=== PATIENT | female | born 1955 | race Caucasian/White ===

== ENCOUNTER 2017-04-19 20:43 | Inpatient (IN) | payer BC ==
[2017-04-19] MEDS ORDERED: Sodium Chloride 0.9% 1,000 ML IV ONE (21:11)
[2017-04-19] MEDS ORDERED: Ondansetron 4 MG/2 ML SDV IVPUSH ONE (21:11)
--- NOTE | 2017-04-19 21:21 | EDM.PDOC ---
<Isela Hutchins - Last Filed: 04/19/17 22:02> ED HPI GENERAL MEDICAL PROBLEM - General Chief Complaint: Abdominal Pain Stated Complaint: PT HAS STOMACH PAINS Time Seen by Provider: 04/19/17 21:05 Source of Information: Reports: Patient History Limitations: Reports: No Limitations - History of Present Illness INITIAL COMMENTS - FREE TEXT/NARRATIVE: HISTORY AND PHYSICAL: History of present illness: [Pt comes to the ER complaining of mid R abd pain. States that she developed a hernia to her R mid abdomen in December 2016 after several days of hard vomiting. She had a regular follow up with her PCP, Dr. Oliva, on Sunday when she first told him about this hernia. He did an abdominal exam that the patient describes as aggressive. Since then she has had increased tenderness to the area. The pain is gradually worsened over the past couple of days. Yesterday she said she noticed some redness developing to her right mid abdomen around the hernia and it worsened throughout today. Since she got home from work at 5:30 she has had several episodes of vomiting, fever, and diarrhea. She feels fatigued and sick. Did not check her temperature at home and has not had any medications for her symptoms. History of cholecystectomy approx 30 years ago. ] Review of systems: As per history of present illness and below otherwise all systems reviewed and negative. Past medical history: As per history of present illness and as reviewed below otherwise noncontributory. Surgical history: As per history of present illness and as reviewed below otherwise noncontributory. Social history: No reported history of drug or alcohol abuse. Family history: As per history of present illness and as reviewed below otherwise noncontributory. Physical exam: Gen.: Well-developed well-nourished female in no acute distress. She appears to not be feeling well but certainly does not appear toxic. Vital signs are reviewed by this provider. Temperature 101 orally. HEENT: Atraumatic, normocephalic. Oral mucous membranes are pink and moist. Lungs: Clear to auscultation, breath sounds equal bilaterally. Heart: S1S2, regular rate and rhythm. No clicks, rubs, or murmur. Abdomen: Bowel sounds are normoactive throughout. Area of erythema to right mid abdomen measures 7" x 3". Area of hardness within the tissues, exquisitely tender to touch. Abd is otherwise soft, nondistended, nontender. Negative for costovertebral tenderness. Genitourinary: Deferred. Rectal: Deferred. Extremities: Atraumatic, ambulatory without deficit. Neurovascular unremarkable. Neuro: Awake, alert, oriented. Motor and sensory unremarkable throughout. Exam nonfocal. Diagnostics: [CBC, CMP, lactic acid, blood cultures, UA, CT abd and pelvis w/ contrast] Therapeutics: [1 liter NS, Zofran 4mg IV, vancomycin 1 gram IV] Impression: [] Plan: [Plan to admit. ] Definitive disposition and diagnosis as appropriate pending reevaluation and review of above. abdomen Pain Score (Numeric/FACES): 8 - Related Data Allergies Allergy/AdvReac Type Severity Reaction Status Date / Time No Known Allergies Allergy Verified 04/19/17 21:01 Home Meds: Home Meds . 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 ED EXAM, GI/ABD - Physical Exam Exam: See Below Course - Vital Signs Last Recorded V/S: Last Vital Signs Temp 36.6 C 04/19/17 23:00 Pulse 78 04/19/17 23:00 Resp 16 04/19/17 23:00 BP 121/52 L 04/19/17 23:00 Pulse Ox 98 04/19/17 23:00 - Orders/Labs/Meds Orders: Active Orders 24 hr Category Date Time Status Abdomen Pelvis w Cont [CT] Stat Exams 04/19/17 21:21 Taken CULTURE BLOOD [BC] Stat Lab 04/19/17 21:11 Ordered CULTURE BLOOD [BC] Stat Lab 04/19/17 21:40 Received Blood Culture x2 Reflex Set [OM.PC] Stat Oth 04/19/17 21:11 Ordered Labs: Laboratory Tests 04/19/17 04/19/17 04/19/17 Range/Units 21:25 21:25 21:25 WBC 16.43 H (4.0-11.0) K/uL RBC 4.70 (4.30-5.90) M/uL Hgb 14.8 (12.0-16.0) g/dL Hct 42.4 (36.0-46.0) % MCV 90.2 (80.0-98.0) fL MCH 31.5 (27.0-32.0) pg MCHC 34.9 (31.0-37.0) g/dL RDW Std Deviation 41.0 (28.0-62.0) fl RDW Coeff of Miladis 13 (11.0-15.0) % Plt Count 352 (150-400) K/uL MPV 9.70 (7.40-12.00) fL Neut % (Auto) 87.5 H (48.0-80.0) % Lymph % (Auto) 6.1 L (16.0-40.0) % [place] % (Auto) 5.7 (0.0-15.0) % Eos % (Auto) 0.6 (0.0-7.0) % Baso % (Auto) 0.1 (0.0-1.5) % Neut # (Auto) 14.4 H (1.4-5.7) K/uL Lymph # (Auto) 1.0 (0.6-2.4) K/uL [place] # (Auto) 0.9 H (0.0-0.8) K/uL Eos # (Auto) 0.1 (0.0-0.7) K/uL Baso # (Auto) 0.0 (0.0-0.1) K/uL Nucleated RBC % 0.0 /100WBC Nucleated RBCs # 0 K/uL Lactate 0.9 (0.20-2.00) mmol/L Sodium 138 (136-146) mmol/L Potassium 3.5 (3.5-5.1) mmol/L Chloride 107 (98-110) mmol/L Carbon Dioxide 19 L (21-31) mmol/L BUN 10 (6.0-23.0) mg/dL Creatinine 0.8 (0.6-1.5) mg/dL Est Cr Clr Drug Dosing TNP Estimated GFR (MDRD) > 60.0 ml/min Glucose 131 H (60-110) mg/dL Calcium 9.6 (8.8-10.8) mg/dL Total Bilirubin 0.8 (0.1-1.5) mg/dL AST 50 H (5-40) IU/L ALT 67 H (8-54) IU/L Alkaline Phosphatase 94 (40-150) Total Protein 8.0 (6.0-8.0) g/dL Albumin 4.5 (3.4-4.8) g/dL Globulin 3.5 (2.0-3.5) g/dL Albumin/Globulin Ratio 1.3 (1.3-2.8) Urine Color Urine Appearance Urine pH (5.0-8.0) Ur Specific [place] (1.001-1.035) Urine Protein (NEGATIVE) mg/dL Urine Glucose (UA) (NEGATIVE) mg/dL Urine Ketones (NEGATIVE) mg/dL Urine Occult Blood (NEGATIVE) Urine Nitrite (NEGATIVE) Urine Bilirubin (NEGATIVE) Urine Urobilinogen (<2.0) EU/dL Ur Leukocyte Esterase (NEGATIVE) Urine RBC (0-2/HPF) Urine WBC (0-5/HPF) Ur Epithelial Cells (NONE-FEW) Urine Bacteria (NEGATIVE) 04/19/17 Range/Units 23:12 WBC (4.0-11.0) K/uL RBC (4.30-5.90) M/uL Hgb (12.0-16.0) g/dL Hct (36.0-46.0) % MCV (80.0-98.0) fL MCH (27.0-32.0) pg MCHC (31.0-37.0) g/dL RDW Std Deviation (28.0-62.0) fl RDW Coeff of Miladis (11.0-15.0) % Plt Count (150-400) K/uL MPV (7.40-12.00) fL Neut % (Auto) (48.0-80.0) % Lymph % (Auto) (16.0-40.0) % [place] % (Auto) (0.0-15.0) % Eos % (Auto) (0.0-7.0) % Baso % (Auto) (0.0-1.5) % Neut # (Auto) (1.4-5.7) K/uL Lymph # (Auto) (0.6-2.4) K/uL [place] # (Auto) (0.0-0.8) K/uL Eos # (Auto) (0.0-0.7) K/uL Baso # (Auto) (0.0-0.1) K/uL Nucleated RBC % /100WBC Nucleated RBCs # K/uL Lactate (0.20-2.00) mmol/L Sodium (136-146) mmol/L Potassium (3.5-5.1) mmol/L Chloride (98-110) mmol/L Carbon Dioxide (21-31) mmol/L BUN (6.0-23.0) mg/dL Creatinine (0.6-1.5) mg/dL Est Cr Clr Drug Dosing Estimated GFR (MDRD) ml/min Glucose (60-110) mg/dL Calcium (8.8-10.8) mg/dL Total Bilirubin (0.1-1.5) mg/dL AST (5-40) IU/L ALT (8-54) IU/L Alkaline Phosphatase (40-150) Total Protein (6.0-8.0) g/dL Albumin (3.4-4.8) g/dL Globulin (2.0-3.5) g/dL Albumin/Globulin Ratio (1.3-2.8) Urine Color YELLOW Urine Appearance CLEAR Urine pH 5.0 (5.0-8.0) Ur Specific [place] <= 1.005 (1.001-1.035) Urine Protein NEGATIVE (NEGATIVE) mg/dL Urine Glucose (UA) NEGATIVE (NEGATIVE) mg/dL Urine Ketones TRACE H (NEGATIVE) mg/dL Urine Occult Blood TRACE-INTACT (NEGATIVE) Urine Nitrite NEGATIVE (NEGATIVE) Urine Bilirubin NEGATIVE (NEGATIVE) Urine Urobilinogen 0.2 (<2.0) EU/dL Ur Leukocyte Esterase NEGATIVE (NEGATIVE) Urine RBC 0-1 (0-2/HPF) Urine WBC 0-2 (0-5/HPF) Ur Epithelial Cells FEW (NONE-FEW) Urine Bacteria FEW (NEGATIVE) Meds: Medications Discontinued Medications Generic Name Dose Route Start Last Admin Trade Name Freq PRN Reason Stop Dose Admin Sodium Chloride 1,000 mls @ 999 mls/hr 04/19/17 21:11 04/19/17 21:28 Normal Saline IV 04/19/17 22:11 999 mls/hr STAT ONE Administration Vancomycin HCl 1 gm/ Sodium 250 mls @ 250 mls/hr 04/19/17 21:37 04/19/17 21: 47 Chloride IV 04/19/17 22:36 250 mls/hr ONETIME ONE Administration Iopamidol 100 ml 04/19/17 22:43 04/19/17 22:44 Isovue Multipack-370 (76%) IVPUSH 04/19/17 22:44 100 ml ONETIME STA Administration Ondansetron HCl 4 mg 04/19/17 21:11 04/19/17 21:28 Zofran IVPUSH 04/19/17 21:12 4 mg ONETIME ONE Administration Departure - Departure Disposition: Refer to Observation Clinical Impression: Cellulitis, Subcutaneous abscess - Discharge Information Referrals: PCP,None [Primary Care Provider] - Forms: ED Department Discharge <Chester Tejada - Last Filed: 04/20/17 00:13> ED HPI GENERAL MEDICAL PROBLEM - History of Present Illness INITIAL COMMENTS - FREE TEXT/NARRATIVE: Patient CT demonstrates subcutaneous abdominal wall abscess , general surgery was consulted and is seen patient emergency department and will admit for definitive treatment. Impression is #1 abdominal wall abscess with cellulitis Departure - Departure Time of Disposition: 00:13 Condition: Good
[2017-04-19 21:59] LABS: CHLORIDE,CL 107 mmol/L (98-110); SODIUM,NA 138 mmol/L (136-146)
[2017-04-19] MEDS ORDERED: Iopamidol 755 MG/ML 500 ML Multipack Bottle IVPUSH STA (22:43)
[2017-04-20] MEDS ORDERED: HYDROmorphone 2 MG/ML Syringe IVPUSH PRN (00:31)
[2017-04-20] MEDS ORDERED: Acetaminophen/HYDROcodone 325-5 MG Tab PO PRN (00:31)
[2017-04-20] MEDS ORDERED: diphenhydrAMINE 50 MG/ML SDV IVPUSH PRN (00:31)
[2017-04-20] MEDS ORDERED: Sodium Chloride 0.9% 50 ML ONE (00:43)
--- NOTE | 2017-04-20 00:43 | PCM.HP ---
H&P History of Present Illness - General Date of Service: 04/20/17 Admit Problem/Dx: Patient is a 62 year old female who presents to the ED with c/o of a painful abdominal mass over a previous surgical incision. The incision is from an open cholecystectomy when she was back in college. She had a post-operative wound infection which was drained and allowed to heal by secondary intention. It has never bothered her until this last spring when she noticed a small bulge along the mid-portion of her scar. It did not go away and so she saw her PCP on Sunday for evaluation. He felt it was a hernia and tried to reduce it. It did not reduce and was painful afterwards. She was told to follow up with a surgeon. The mass grew more and more painful. It became red today and the patient was having chills, low grade fevers, as well as nausea and vomiting. She presented to the ED this evening. She was found to have a firm indurated area ~4cm in size along the midportion of her old incision. CBC showed a leukocytosis with left shift. CT of the abdomen without oral or IV contrast showed a 2.5 cm abscess with stranding along the area of interest. She also has enlarged central mesenteric lymph nodes, fatty liver, an absent appendix and gallbladder, and diverticulosis. Source of Information: Patient abdomen Pain Score (Numeric/FACES): 8 - Related Data Allergies/Adverse Reactions: Allergies Allergy/AdvReac Type Severity Reaction Status Date / Time No Known Allergies Allergy Verified 04/19/17 21:01 Home Medications: Home Meds . 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: Endocrine/Metabolic History: Reports: Other (See Below) (Thyroid disease) - Infectious Disease History Infectious Disease History: Reports: None - Past Surgical History GI Surgical History: Reports: Appendectomy, Cholecystectomy Female Surgical History: Reports: Tubal Ligation Endocrine Surgical History: Reports: Other (See Below) Other Endocrine Surgeries/Procedures: partial thyroid removal Social & Family History - Family History Family Medical History: Noncontributory - Tobacco Use Smoking Status *Q: Former Smoker - Recreational Drug Use Recreational Drug Use: No H&P Review of Systems - Review of Systems: Review Of Systems: See Below General: Reports: Fever, Chills, Malaise, Weakness, Decreased Appetite HEENT: Reports: No Symptoms Pulmonary: Reports: No Symptoms Cardiovascular: Reports: No Symptoms Gastrointestinal: Reports: Abdominal Pain, Flatus, Nausea, Vomiting. Denies: Hematochezia, Melena, Mucous in Stool, Stool Incontinence Musculoskeletal: Reports: No Symptoms Skin: Reports: Erythema, Lumps Psychiatric: Reports: No Symptoms Neurological: Reports: No Symptoms Hematologic/Lymphatic: Reports: No Symptoms. Denies: Swollen Glands Immunologic: Reports: No Symptoms Exam - Exam Exam: See Below - Vital Signs Vital Signs: Last Vital Signs Temp 36.6 C 04/19/17 23:00 Pulse 78 04/19/17 23:00 Resp 16 04/19/17 23:00 BP 121/52 L 04/19/17 23:00 Pulse Ox 98 04/19/17 23:00 Weight: 56.6 kg - Exam General: Alert, Oriented HEENT: Conjunctiva Clear, EACs Clear, Hearing Intact, Mucosa Moist & Forks, Posterior Pharynx Clear, Pupils Equal, Pupils Reactive Neck: Supple, Trachea Midline Lungs: Clear to Auscultation, Normal Respiratory Effort Cardiovascular: Regular Rate, Regular Rhythm GI/Abdominal Exam: Soft, No Distention, Tender, Other (4 cm area of induration along midportion of previous abdominal incision ) Extremities: Normal Inspection - Patient Data Result Diagrams: 04/19/17 21:25 04/19/17 21:25 *Q Meaningful Use (ADM) - VTE *Q VTE Criteria *Q: - Stroke *Q Stroke Criteria *Q: - AMI *Q AMI Criteria *Q: - Problem List (1) Cellulitis SNOMED Code(s): 294161235 ICD Code: L03.90 - CELLULITIS, UNSPECIFIED Status: Acute Current Visit: Yes (2) Subcutaneous abscess SNOMED Code(s): 45223553 ICD Code: L02.91 - CUTANEOUS ABSCESS, UNSPECIFIED Status: Acute Current Visit: Yes Problem List Initiated/Reviewed/Updated: Yes Assessment/Plan Comment:: Patient has an abscess of the abdominal wall along her previous incision. This abuts the abdominal wall fascia. It is too deep and painful to open up bedside. She should be taken to the OR for an incision and drainage in the morning after she has been resuscitated and been given broad spectrum antibiotics. -IV pain meds -NPO except ice chips and meds -IV zosyn and vanc -LR @ 125ml/hr -OR in am
[2017-04-20] MEDS: Lactated Ringers 1,000 ML IV SCH ×2 (00:46→19:31)
[2017-04-20] MEDS: Piperacillin/Tazobactam 3.375 GM in Sodium Chloride 0.9% 50 ML IV SCH ×3 (00:46→16:27)
[2017-04-20] MEDS ORDERED: Lidocaine 1% with EPINEPHrine 1:100,000 20 ML MDV ONE (07:38)
[2017-04-20] MEDS ORDERED: Bupivacaine 0.5% 30 ML SDV ONE (07:38)
[2017-04-20] MEDS ORDERED: ceFAZolin 1 GM Vial ONE (07:38)
[2017-04-20] MEDS ORDERED: Lidocaine 2% 5 ML SDV ONE ×2 (07:42→11:25)
[2017-04-20] MEDS ORDERED: Propofol 200 MG/20 ML SDV ONE (07:42)
[2017-04-20] MEDS ORDERED: fentaNYL 100 MCG/2 ML SDV ONE ×2 (07:43→11:24)
[2017-04-20] MEDS ORDERED: Midazolam 1 MG/ML 2 ML SDV ONE ×2 (07:43→11:25)
--- NOTE | 2017-04-20 08:05 | PCM.PREANE ---
Preanesthetic Assessment - Anesthesia/Transfusion/Family Hx Anesthesia History: Prior Anesthesia Without Reaction (hx open kim, appy, lt ankle orif with hardware, thyroid,) Family History of Anesthesia Reaction: No Transfusion History: No Prior Transfusion(s) - Review of Systems General: No Symptoms Pulmonary: No Symptoms Cardiovascular: No Symptoms Gastrointestinal: Abdominal Pain, Diarrhea, Nausea, Vomiting (admitted yesterday for n/v, emesis) Neurological: No Symptoms - Physical Assessment NPO Status Date: 04/20/17 NPO Status Time: 04:00 O2 Sat by Pulse Oximetry: 91 Respiratory Rate: 16 Vital Signs: Last Vital Signs Temp 37.6 C 04/20/17 04:00 Pulse 70 04/20/17 04:00 Resp 16 04/20/17 04:00 BP 104/57 L 04/20/17 04:00 Pulse Ox 91 L 04/20/17 04:00 Height: 1.55 m Weight: 57.742 kg ASA Class: 2E (4 am ice chips, solids at 1400 04/19) Mental Status: Alert & Oriented x3 Airway Class: Mallampati = 2 Dentition: Reports: Bridge (front bridge) Thyro-Mental Finger Breadths: 3 Mouth Opening Finger Breadths: 3 ROM/Head Extension: Full Lungs: Clear to Auscultation, Normal Respiratory Effort Cardiovascular: Regular Rate, Regular Rhythm - Lab Values: Laboratory Last Values WBC 10.80 K/uL (4.0-11.0) 04/20/17 05:29 RBC 3.84 M/uL (4.30-5.90) L 04/20/17 05:29 Hgb 11.9 g/dL (12.0-16.0) L 04/20/17 05:29 Hct 34.9 % (36.0-46.0) L 04/20/17 05:29 MCV 90.9 fL (80.0-98.0) 04/20/17 05:29 MCH 31.0 pg (27.0-32.0) 04/20/17 05:29 MCHC 34.1 g/dL (31.0-37.0) 04/20/17 05:29 RDW Std Deviation 41.7 fl (28.0-62.0) 04/20/17 05:29 RDW Coeff of Miladis 13 % (11.0-15.0) 04/20/17 05:29 Plt Count 303 K/uL (150-400) 04/20/17 05:29 MPV 9.60 fL (7.40-12.00) 04/20/17 05:29 Neut % (Auto) 79.8 % (48.0-80.0) 04/20/17 05:29 Lymph % (Auto) 13.2 % (16.0-40.0) L 04/20/17 05:29 [place] % (Auto) 6.0 % (0.0-15.0) 04/20/17 05:29 Eos % (Auto) 0.9 % (0.0-7.0) 04/20/17 05:29 Baso % (Auto) 0.1 % (0.0-1.5) 04/20/17 05:29 Neut # (Auto) 8.6 K/uL (1.4-5.7) H 04/20/17 05:29 Lymph # (Auto) 1.4 K/uL (0.6-2.4) 04/20/17 05:29 [place] # (Auto) 0.7 K/uL (0.0-0.8) 04/20/17 05:29 Eos # (Auto) 0.1 K/uL (0.0-0.7) 04/20/17 05:29 Baso # (Auto) 0.0 K/uL (0.0-0.1) 04/20/17 05:29 Nucleated RBC % 0.0 /100WBC 04/20/17 05:29 Nucleated RBCs # 0 K/uL 04/20/17 05:29 Lactate 0.9 mmol/L (0.20-2.00) 04/19/17 21:25 Sodium 138 mmol/L (136-146) 04/19/17 21:25 Potassium 3.5 mmol/L (3.5-5.1) 04/19/17 21:25 Chloride 107 mmol/L (98-110) 04/19/17 21:25 Carbon Dioxide 19 mmol/L (21-31) L 04/19/17 21:25 BUN 10 mg/dL (6.0-23.0) 04/19/17 21:25 Creatinine 0.8 mg/dL (0.6-1.5) 04/19/17 21:25 Est Cr Clr Drug Dosing TNP 04/19/17 21:25 Estimated GFR (MDRD) > 60.0 ml/min 04/19/17 21:25 Glucose 131 mg/dL (60-110) H 04/19/17 21:25 Calcium 9.6 mg/dL (8.8-10.8) 04/19/17 21:25 Total Bilirubin 0.8 mg/dL (0.1-1.5) 04/19/17 21:25 AST 50 IU/L (5-40) H 04/19/17 21:25 ALT 67 IU/L (8-54) H 04/19/17 21:25 Alkaline Phosphatase 94 (40-150) 04/19/17 21:25 Total Protein 8.0 g/dL (6.0-8.0) 04/19/17 21:25 Albumin 4.5 g/dL (3.4-4.8) 04/19/17 21:25 Globulin 3.5 g/dL (2.0-3.5) 04/19/17 21:25 Albumin/Globulin Ratio 1.3 (1.3-2.8) 04/19/17 21:25 Urine Color YELLOW 04/19/17 23:12 Urine Appearance CLEAR 04/19/17 23:12 Urine pH 5.0 (5.0-8.0) 04/19/17 23:12 Ur Specific [place] <= 1.005 (1.001-1.035) 04/19/17 23:12 Urine Protein NEGATIVE mg/dL (NEGATIVE) 04/19/17 23:12 Urine Glucose (UA) NEGATIVE mg/dL (NEGATIVE) 04/19/17 23:12 Urine Ketones TRACE mg/dL (NEGATIVE) H 04/19/17 23:12 Urine Occult Blood TRACE-INTACT (NEGATIVE) 04/19/17 23:12 Urine Nitrite NEGATIVE (NEGATIVE) 04/19/17 23:12 Urine Bilirubin NEGATIVE (NEGATIVE) 04/19/17 23:12 Urine Urobilinogen 0.2 EU/dL (<2.0) 04/19/17 23:12 Ur Leukocyte Esterase NEGATIVE (NEGATIVE) 04/19/17 23:12 Urine RBC 0-1 (0-2/HPF) 04/19/17 23:12 Urine WBC 0-2 (0-5/HPF) 04/19/17 23:12 Ur Epithelial Cells FEW (NONE-FEW) 04/19/17 23:12 Urine Bacteria FEW (NEGATIVE) 04/19/17 23:12 - Allergies Allergies/Adverse Reactions: Allergies Allergy/AdvReac Type Severity Reaction Status Date / Time No Known Allergies Allergy Verified 04/19/17 21:01 - Blood Blood Available: No - Acknowledgements Anesthesia Type Planned: MAC Pt an Appropriate Candidate for the Planned Anesthesia: Yes Alternatives and Risks of Anesthesia Discussed w Pt/Guardian: Yes Pt/Guardian Understands and Agrees with Anesthesia Plan: Yes PreAnesthesia Questionnaire - Past Health History Medical/Surgical History: Denies Medical/Surgical History Cardiovascular History: Reports: None Respiratory History: Reports: None Gastrointestinal History: Reports: Cholelithiasis, Diverticulosis 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 [No Known Home Meds] 04/19/17 [History] - CURRENT (IN HOUSE) MEDS Current Meds: Current Medications Hydrocodone Bitart/Acetaminophen ([place] 325-5 Mg) 2 tab PO Q4H PRN PRN Reason: Pain (moderate 4-6) Diphenhydramine HCl (Benadryl) 25 mg IVPUSH Q4H PRN PRN Reason: Itching Hydromorphone HCl (Dilaudid) 0.5 mg IVPUSH Q1H PRN PRN Reason: Pain (severe 7-10) Lactated Ringer's (Ringers, Lactated) 1,000 mls @ 125 mls/hr IV ASDIRECTED [facility] Last Admin: 04/20/17 00:46 Dose: 125 mls/hr Piperacillin Sod/Tazobactam (Sod 3.375 gm/ Sodium Chloride) 50 mls @ 100 mls/ hr IV Q8H [facility] Last Admin: 04/20/17 00:46 Dose: 100 mls/hr Vancomycin HCl 0.75 gm/ Sodium (Chloride) 250 mls @ 166 mls/hr IV Q12H [facility] Ondansetron HCl (Zofran) 4 mg IVPUSH Q6H PRN PRN Reason: Nausea/Vomiting Discontinued Medications Bupivacaine HCl (Marcaine 0.5%) Confirm Administered Dose 30 ml .ROUTE .STK-MED ONE Stop: 04/20/17 07:39 Cefazolin Sodium (Ancef) Confirm Administered Dose 3 gm .ROUTE .STK-MED ONE Stop: 04/20/17 07:39 Fentanyl (Sublimaze) Confirm Administered Dose 100 mcg .ROUTE .STK-MED ONE Stop: 04/20/17 07:44 Sodium Chloride (Normal Saline) 1,000 mls @ 999 mls/hr IV STAT ONE Stop: 04/19/17 22:11 Last Admin: 04/19/17 21:28 Dose: 999 mls/hr Vancomycin HCl 1 gm/ Sodium (Chloride) 250 mls @ 250 mls/hr IV ONETIME ONE Stop: 04/19/17 22:36 Last Admin: 04/19/17 21:47 Dose: 250 mls/hr Sodium Chloride (Normal Saline) Confirm Administered Dose 50 mls @ as directed .ROUTE .STK-MED ONE Stop: 04/20/17 00:44 Iopamidol (Isovue Multipack-370 (76%)) 100 ml IVPUSH ONETIME STA Stop: 04/19/17 22:44 Last Admin: 04/19/17 22:44 Dose: 100 ml Lidocaine (Xylocaine-Mpf 2%) Confirm Administered Dose 5 ml .ROUTE .STK-MED ONE Stop: 04/20/17 07:43 Lidocaine/Epinephrine (Xylocaine 1% With Epinephrine 1:100,000) Confirm Administered Dose 20 ml .ROUTE .STK-MED ONE Stop: 04/20/17 07:39 Midazolam HCl (Versed 1 Mg/Ml) Confirm Administered Dose 2 mg .ROUTE .STK-MED ONE Stop: 04/20/17 07:44 Ondansetron HCl (Zofran) 4 mg IVPUSH ONETIME ONE Stop: 04/19/17 21:12 Last Admin: 04/19/17 21:28 Dose: 4 mg Propofol (Diprivan 20 Ml) Confirm Administered Dose 400 mg .ROUTE .STK-MED ONE Stop: 04/20/17 07:43
[2017-04-20] MEDS ORDERED: HYDROmorphone 2 MG/ML Syringe ONE (08:17)
[2017-04-20] MEDS ORDERED: fentaNYL 100 MCG/2 ML SDV IVPUSH PRN (08:45)
--- NOTE | 2017-04-20 09:07 | PCM.POSTAN ---
POST ANESTHESIA ASSESSMENT - MENTAL STATUS Mental Status: Alert, Oriented - VITAL SIGNS Pulse Rate: 71 SaO2: 98 Resp Rate: 16 Blood Pressure: 91/48 - RESPIRATORY Respiratory Status: Respiratory Rate WNL, Airway Patent, O2 Saturation Stable, Supplemental Oxygen - CARDIOVASCULAR CV Status: Pulse Rate WNL, Blood Pressure Stable - GASTROINTESTINAL GI Status: No Symptoms - PAIN Pain Score: 0 - POST OP HYDRATION Hydration Status: Adequate & Stable - OBSERVATIONS Free Text/Narrative:: Pt stable with no postop pain or nausea at this time. VSS. Stable for discharge back to med/surg for phase II recovery.
--- NOTE | 2017-04-20 09:19 | PCM.OPNOTE ---
- General Post-Op/Procedure Note Date of Surgery/Procedure: 04/20/17 Operative Procedure(s): Incision and drainage of abdominal wall abscess Findings: 3 cm abscess along the mid-porition of a previous incision from an open cholecystectomy many years ago. This was located along the abdominal wall. Pre Op Diagnosis: Abdominal wall abcess Post-Op Diagnosis: same Anesthesia Technique: MAC Primary Surgeon: Homa Kumari Condition: Good
--- NOTE | 2017-04-20 09:40 | OR ---
SURGEON: JESSIE CULP MD DATE OF PROCEDURE: 04/20/2017 PREOPERATIVE DIAGNOSIS: Abdominal wall abscess. POSTOPERATIVE DIAGNOSIS: Abdominal wall abscess. PROCEDURE PERFORMED: Incision and drainage of abdominal wall abscess. ANESTHESIA: MAC. ESTIMATED BLOOD LOSS: 5 mL. FINDINGS: Approximately 3 cm collection of pus along the midportion of a previous cholecystectomy incision along the abdominal wall fascia. No evidence of fistula at the base of the wound. COMPLICATIONS: None. INDICATIONS: The patient is a 62-year-old female, who presents with complaints of erythema, swelling, and tenderness in the right upper quadrant. Last spring, the patient noted a small mass along a previous open cholecystectomy incision. This did not go away, so she presented to her primary care provider's office on Sunday. He felt this was an incarcerated hernia and he attempted to reduce it. When it did not reduce, he recommended seeing a surgeon. The patient was scheduled to see me today in clinic. The patient developed increasing pain, erythema, swelling, and tenderness over the area and then developed fevers, chills, nausea, and vomiting. She presented to the emergency room last night. A CT was performed that showed a stranding and a 2.5 cm abscess along the abdominal wall. The patient was admitted to the floor, resuscitated, given IV antibiotics, and scheduled for an I and D this morning. It appeared too deep to drain at bedside. We discussed the procedure as well as expected perioperative course. We discussed the risks, including bleeding, infection, or damage to surrounding structures. The patient verbalized understanding and wishes to proceed. PROCEDURE IN DETAIL: The patient was brought into the OR and placed on the OR table in supine position. A time-out was completed verifying the patient's name, age, date of , allergies, and procedure to be performed. Monitored anesthesia care was induced. The abdomen was prepped and draped in the usual standard fashion. I palpated the area of maximal inflammation and felt a small pinpoint area of fluctuance. A 22-gauge spinal needle was placed through this area and I aspirated emy purulence. The area overlying the abscess was anesthetized with 1% lidocaine with epinephrine. A 3 cm incision was made along the previous incisional scar with a 15 blade. This was carried down through the subcutaneous tissues. A pocket of purulence was noted just above the abdominal wall fascia. Cultures were sent of the fluid for Gram stain and culture. The abscess cavity measured approximately 3 cm. The base of the wound was the abdominal wall fascia, but I did not note any fistula or mass at the base of this. The wound was irrigated out and packed with wet-to-dry dressings. The patient tolerated the procedure well and was taken to PACU in stable condition. JAIME GONZALEZ /[id number]
[2017-04-20] MEDS ORDERED: Ondansetron 4 MG/2 ML SDV ONE (11:25)
--- NOTE | 2017-04-20 12:34 | PCM48HPAN ---
Post Anesthesia Note - EVALUATION WITHIN 48HRS OF ANESTHETIC Vital Signs in Normal Range: Yes Patient Participated in Evaluation: Yes Respiratory Function Stable: Yes Airway Patent: Yes Cardiovascular Function Stable: Yes Hydration Status Stable: Yes Pain Control Satisfactory: Yes Nausea and Vomiting Control Satisfactory: Yes Mental Status Recovered: Yes - COMMENTS/OBSERVATIONS Free Text/Narrative:: Patient sitting up in bed eating. Denies any complaints at this time.
--- NOTE | 2017-04-20 14:22 | CT ---
EXAM DATE: 04/20/17 PATIENT'S AGE: 62 Patient: CALOS MAHAN Facility: [place], [place] Site . Site : 1955 Study: CT Abdomen/Pelvis [id number] 10:42:27 PM Ordering Physician: Doctor Archer Final Report: INDICATION: Right lower quadrant pain with vomiting. TECHNIQUE: CT abdomen and pelvis acquired with i.v. 100 mL Isovue 370. Coronal and sagittal reformats were obtained. COMPARISON: None FINDINGS: Lower chest: Unremarkable. Liver: Mild fatty infiltration liver. No focal liver lesion. Spleen: Unremarkable. Pancreas: Unremarkable. Gallbladder and bile ducts: Gallbladder not identified. No abnormal biliary dilatation. Kidneys: Bilateral simple appearing renal cysts. No hydronephrosis. Ureters are normal in caliber. Adrenal glands: Unremarkable. GI tract: Unremarkable. The appendix is normal in appearance and size. Scattered diverticula. Appendix not identified. Large bowel and segments of distal small bowel demonstrate intraluminal fluid, a nonspecific finding. Vascular: Portal vein branches, splenic vein, and SMV patent. Normal orientation of SMA and SMV. Origins of the celiac artery and SMA are patent. No abdominal aortic aneurysm. Lymph nodes: Multiple enlarged left central mesenteric lymph nodes. Largest lymph node measures 1.4 centimeters in short axis diameter on series 201, image 54 with estimated length 2.9 centimeters. No pathologically enlarged periaortic lymph nodes. No enlarged pelvic sidewall or inguinal lymph nodes. Miscellaneous: Subcutaneous fluid collection in the anterior right abdominal wall on series 201, image 68 with peripheral enhancement and adjacent fat stranding, suspicious for subcutaneous abscess. No focus of air within the fluid collection. Pelvic Organs: Unremarkable. Bones: Unremarkable for age. IMPRESSION: 1. Abnormal findings in the right anterior abdominal wall with likely subcutaneous abscess measuring 2.5 centimeters on series 201, image 60. 2. Multiple abnormal mesenteric lymph nodes in the central left mesentery. Findings are nonspecific, differential including sclerosing mesenteritis or possible lymphoma. No abnormal retroperitoneal or pelvic lymphadenopathy. 3. Gallbladder and appendix surgically absent. 4. Mild fluid distention of large bowel and distal small bowel, nonspecific finding. No underlying bowel obstruction. Findings may represent mild degree of underlying enteritis. 5. Diverticulosis. 6. Fatty infiltration of liver. Dictated by Miguel Angel Peterson MD @ 04/19/2017 11:03:53 PM Dictated by: Miguel Angel Peterson MD @ 04/19/2017 23:04:02 ----- ADDENDUM ----- ADDENDUM: 1. EDGAR Hauser confirmed report receipt on 04/19/2017 at 11:06pm [employer]. Dictated by Miguel Angel Peterson MD @ Apr 19 2017 11:07PM (Electronic Signature) Report Signed by Proxy. DOMINIK
[2017-04-20] MEDS: Ondansetron 4 MG/2 ML SDV IVPUSH PRN (18:39)
[2017-04-21] MEDS: Piperacillin/Tazobactam 3.375 GM in Sodium Chloride 0.9% 50 ML IV SCH ×2 (02:01→08:02)
[2017-04-21] MEDS: Lactated Ringers 1,000 ML IV SCH (05:04)
[2017-04-21] MEDS: Ondansetron 4 MG/2 ML SDV IVPUSH PRN (07:23)
[2017-04-21] MEDS ORDERED: Ciprofloxacin 500 MG Tab PO SCH (10:00)
[2017-04-21] MEDS ORDERED: metroNIDAZOLE 250 MG Tab PO SCH (10:00)
[2017-04-21] MEDS ORDERED: traMADol 50 MG Tab PO PRN (10:20)
--- NOTE | 2017-04-21 10:30 | PCM.DCSUM1 ---
Discharge Summary - Hospital Course Free Text/Narrative:: Patient presented to the ED with cellulitis and an abdominal wall abscess. She was admited to the hospital and started on broad spectrum antibiotics. THe abscess was deep to an old open cholecystectomy scar. She was taken to the OR where the abscess was incised and drained. Purulent fluid was sent for culture. It was found to have moderate gram neg rods and few gram positive cocci. Her cellulitis and leukocytosis resolved. She was switched to oral antibiotics. Her first dressing change went well and the wound appears dry. - Discharge Data Discharge Date: 04/21/17 Discharge Disposition: Home, Self-Care 01 Condition: Good - Discharge Diagnosis/Problem(s) (1) Cellulitis SNOMED Code(s): 145870091 ICD Code: L03.90 - CELLULITIS, UNSPECIFIED Status: Acute Current Visit: Yes (2) Subcutaneous abscess SNOMED Code(s): 99713095 ICD Code: L02.91 - CUTANEOUS ABSCESS, UNSPECIFIED Status: Acute Current Visit: Yes - Patient Summary/Data Operative Procedure(s) Performed: Incision and drainage of abdominal wall abscess - Patient Instructions Diet: Regular Diet as Tolerated Activity: Rest and Relax Today Driving: Do Not Drive Driving, Other: Until off all narcotics Showering/Bathing: October Shower Wound/Incision Care: Keep Operative Site/Wound Site Clean and Dry Notify Provider of: Fever, Increased Pain, Swelling and Redness, Drainage, Nausea and/or Vomiting - Discharge Plan Prescriptions/Med Rec: Ciprofloxacin [Ciprofloxacin HCl] 500 mg PO BID #10 tablet metroNIDAZOLE 250 mg PO Q6H #20 tablet traMADol [Ultram] 50 mg PO Q4H PRN #20 tablet PRN Reason: Abdominal Pain Home Medications: Home Meds Ciprofloxacin [Ciprofloxacin HCl] 500 mg PO BID #10 tablet 04/21/17 [Rx] metroNIDAZOLE 250 mg PO Q6H #20 tablet 04/21/17 [Rx] traMADol [Ultram] 50 mg PO Q4H PRN #20 tablet 04/21/17 [Rx] Forms: ED Department Discharge Referrals: Homa Kumari MD [Physician] - 05/04/17 10:45 am - General Info Date of Service: 04/21/17 Subjective Update: Threw up after norco, but used IV dialudid and pain was well controlled. Slept through the night. no fevers chills. Functional Status: Reports: Pain Controlled, Tolerating Diet, Ambulating - Review of Systems General: Reports: No Symptoms Pulmonary: Reports: No Symptoms Cardiovascular: Reports: No Symptoms Gastrointestinal: Reports: No Symptoms - Patient Data Vitals - Most Recent: Last Vital Signs Temp 36.8 C 04/21/17 08:00 Pulse 69 04/21/17 08:00 Resp 14 04/21/17 08:00 BP 125/77 04/21/17 08:00 Pulse Ox 90 L 04/21/17 08:00 Weight - Most Recent: 57.742 kg I&O - Last 24 hours: Intake & Output 04/20/17 04/21/17 04/21/17 22:59 06:59 14:59 Intake Total 2594 2529 50 Output Total 1525 970 Balance 1069 1559 50 Lab Results - Last 24 hrs: Laboratory Results - last 24 hr 04/21/17 Range/Units 06:06 WBC 7.03 (4.0-11.0) K/uL RBC 3.60 L (4.30-5.90) M/uL Hgb 11.1 L (12.0-16.0) g/dL Hct 33.1 L (36.0-46.0) % MCV 91.9 (80.0-98.0) fL MCH 30.8 (27.0-32.0) pg MCHC 33.5 (31.0-37.0) g/dL RDW Std Deviation 42.8 (28.0-62.0) fl RDW Coeff of Miladis 13 (11.0-15.0) % Plt Count 265 (150-400) K/uL MPV 9.50 (7.40-12.00) fL Neut % (Auto) 73.6 (48.0-80.0) % Lymph % (Auto) 18.2 (16.0-40.0) % Tillman % (Auto) 5.4 (0.0-15.0) % Eos % (Auto) 2.7 (0.0-7.0) % Baso % (Auto) 0.1 (0.0-1.5) % Neut # (Auto) 5.2 (1.4-5.7) K/uL Lymph # (Auto) 1.3 (0.6-2.4) K/uL Tillman # (Auto) 0.4 (0.0-0.8) K/uL Eos # (Auto) 0.2 (0.0-0.7) K/uL Baso # (Auto) 0.0 (0.0-0.1) K/uL Nucleated RBC % 0.0 /100WBC Nucleated RBCs # 0 K/uL SEPIDEH Results - Last 24 hrs: Microbiology 04/20/17 08:30 Gram Stain - Final Abdomen - Abscess Med Orders - Current: Current Medications Hydrocodone Bitart/Acetaminophen ([place] 325-5 Mg) 2 tab PO Q4H PRN PRN Reason: Pain (moderate 4-6) Last Admin: 04/20/17 13:48 Dose: 2 tab Ciprofloxacin (Ciprofloxacin Hcl) 500 mg PO BID [facility] Last Admin: 04/21/17 10:19 Dose: 500 mg Diphenhydramine HCl (Benadryl) 25 mg IVPUSH Q4H PRN PRN Reason: Itching Fentanyl (Sublimaze) 50 mcg IVPUSH .Q5MIN PRN PRN Reason: Pain Hydromorphone HCl (Dilaudid) 0.5 mg IVPUSH Q1H PRN PRN Reason: Pain (severe 7-10) Last Admin: 04/21/17 07:23 Dose: 0.5 mg Lactated Ringer's (Ringers, Lactated) 1,000 mls @ 125 mls/hr IV ASDIRECTED [facility] Last Admin: 04/21/17 05:04 Dose: 125 mls/hr Metronidazole (Metronidazole) 250 mg PO Q6H [facility] Last Admin: 04/21/17 10:19 Dose: 250 mg Ondansetron HCl (Zofran) 4 mg IVPUSH Q6H PRN PRN Reason: Nausea/Vomiting Last Admin: 04/21/17 07:23 Dose: 4 mg Tramadol HCl (Ultram) 50 mg PO Q4H PRN PRN Reason: Abdominal Pain Discontinued Medications Bupivacaine HCl (Marcaine 0.5%) Confirm Administered Dose 30 ml .ROUTE .STK-MED ONE Stop: 04/20/17 07:39 Cefazolin Sodium (Ancef) Confirm Administered Dose 3 gm .ROUTE .STK-MED ONE Stop: 04/20/17 07:39 Fentanyl (Sublimaze) Confirm Administered Dose 100 mcg .ROUTE .STK-MED ONE Stop: 04/20/17 07:44 Fentanyl (Sublimaze) Confirm Administered Dose 100 mcg .ROUTE .STK-MED ONE Stop: 04/20/17 11:25 Hydromorphone HCl (Dilaudid) Confirm Administered Dose 2 mg .ROUTE .STK-MED ONE Stop: 04/20/17 08:18 Sodium Chloride (Normal Saline) 1,000 mls @ 999 mls/hr IV STAT ONE Stop: 04/19/17 22:11 Last Admin: 04/19/17 21:28 Dose: 999 mls/hr Vancomycin HCl 1 gm/ Sodium (Chloride) 250 mls @ 250 mls/hr IV ONETIME ONE Stop: 04/19/17 22:36 Last Admin: 04/19/17 21:47 Dose: 250 mls/hr Piperacillin Sod/Tazobactam (Sod 3.375 gm/ Sodium Chloride) 50 mls @ 100 mls/ hr IV Q8H [facility] Last Admin: 04/21/17 08:02 Dose: 100 mls/hr Sodium Chloride (Normal Saline) Confirm Administered Dose 50 mls @ as directed .ROUTE .STK-MED ONE Stop: 04/20/17 00:44 Last Admin: 04/20/17 19:11 Dose: Not Given Vancomycin HCl 0.75 gm/ Sodium (Chloride) 250 mls @ 166 mls/hr IV Q12H [facility] Last Admin: 04/21/17 00:22 Dose: 166 mls/hr Iopamidol (Isovue Multipack-370 (76%)) 100 ml IVPUSH ONETIME STA Stop: 04/19/17 22:44 Last Admin: 04/19/17 22:44 Dose: 100 ml Lidocaine (Xylocaine-Mpf 2%) Confirm Administered Dose 5 ml .ROUTE .STK-MED ONE Stop: 04/20/17 07:43 Lidocaine (Xylocaine-Mpf 2%) Confirm Administered Dose 5 ml .ROUTE .STK-MED ONE Stop: 04/20/17 11:26 Lidocaine/Epinephrine (Xylocaine 1% With Epinephrine 1:100,000) Confirm Administered Dose 20 ml .ROUTE .STK-MED ONE Stop: 04/20/17 07:39 Midazolam HCl (Versed 1 Mg/Ml) Confirm Administered Dose 2 mg .ROUTE .STK-MED ONE Stop: 04/20/17 07:44 Midazolam HCl (Versed 1 Mg/Ml) Confirm Administered Dose 2 mg .ROUTE .STK-MED ONE Stop: 04/20/17 11:26 Ondansetron HCl (Zofran) 4 mg IVPUSH ONETIME ONE Stop: 04/19/17 21:12 Last Admin: 04/19/17 21:28 Dose: 4 mg Ondansetron HCl (Zofran) Confirm Administered Dose 4 mg .ROUTE .STK-MED ONE Stop: 04/20/17 11:26 Propofol (Diprivan 20 Ml) Confirm Administered Dose 400 mg .ROUTE .STK-MED ONE Stop: 04/20/17 07:43 - Exam General: Reports: Alert, Oriented HEENT: Reports: Pupils Equal, Pupils Reactive Lungs: Reports: Normal Respiratory Effort Cardiovascular: Reports: Regular Rhythm GI/Abdominal Exam: Soft, Non-Tender, No Distention, Other (base of wound appears to be red. No further purulence noted. ) Extremities: Normal Inspection *Q Meaningful Use (DIS) - VTE *Q VTE Criteria *Q: - Stroke *Q Stroke Criteria *Q: - AMI *Q AMI Criteria *Q:
== END 2017-04-21 11:45 | disposition home or self-care (01) | DRG 383 ==
LOC: MW.ED 20:43 → MW.MS 04-20 00:35
PROVIDERS: ADMIT Surgery; ATTEND Surgery
PROC: 0W9F3ZZ Drainage of Abdominal Wall, Percutaneous Approach (ICD-10-PCS; principal; 2017-04-20)
DX: L02.211 Cutaneous abscess of abdominal wall (principal); L03.311 Cellulitis of abdominal wall; Z90.49 Acquired absence of other specified parts of digestive tract; Z87.891 Personal history of nicotine dependence; Z79.899 Other long term (current) drug therapy
CPT/HCPCS: 00400; 36415; 74177; 74177-26; 80053; 81001; 83605; 85025; 87040; 87070; 87075; 87077; 87205; 96365; 96375; 99283; 99285-25; A9270-GY; J0690; J1170; J2250; J2405; J2543; J2704; J3010; J3370; J7040; J7050; J7120; Q9967